=== PATIENT | male | born 1945 | race Caucasian/White ===

== ENCOUNTER 2017-12-18 05:27 | Emergency (ER) | payer OTHER ==
[2017-12-18] MEDS ORDERED: HYDROCODONE/APAP 5/325 MG TAB ONE (06:14)
[2017-12-18] MEDS ORDERED: ONDANSETRON 4 MG/2 ML VIAL ONE (06:44)
[2017-12-18] MEDS ORDERED: MORPHINE 4 MG/ML SYR ONE (06:44)
[2017-12-18] MEDS ORDERED: TETANUS & DIPHTHERIA TOX,ADULT 0.5 ML VIAL ONE (06:45)
[2017-12-18] MEDS ORDERED: CEFTRIAXONE/SWI 1gm 1 GM/10 ML SYR ONE (06:45)
[2017-12-18 06:56] LABS: Absolute Lymphocytes (CBC) 1.2 K/uL (0.7-4.9); Absolute Monocytes 0.8 K/uL (0.1-1.3); Absolute Neutrophil 5.6 K/uL (1.8-8.0); Basophils % 0.8 % (0-1.3); Eosinophils % 2.9 % (0-4.4); Hematocrit 34.8 % (39.6-49.0); Lymphocytes % 15.1 % (15.3-44.8); MCH 32.1 pg (27.0-35.0); MCV 89.7 fL (80-100); MPV 7.6 fL (7.6-11.3); Monocytes % 10.1 % (3.3-12.3); RBC Red Blood Cell Count 3.88 M/uL (4.33-5.43)
[2017-12-18 07:10] LABS: Potassium 4.2 mmol/L (3.5-5.1)
[2017-12-18] MEDS ORDERED: VANCOMYCIN 1 GM/250 ML BAG ONE (07:20)
--- NOTE | 2017-12-18 08:49 | RAD REPORT ---
EXAM DESCRIPTION: CT - Hand Right W Con - 12/18/2017 8:09 am CLINICAL HISTORY: Right hand pain and swelling. Right hand injury 2 days ago. Swelling in the region of the third MCP joint COMPARISON: December 18, 2017 x-ray TECHNIQUE: Computed coronal tomography of the right hand was obtained with axial and sagittal recons truction. 50 cc Isovue-[address] scans are performed using dose optimization technique as appropriate and may include automated exposure control or mA/KV adjustment according to patient size. FINDINGS: Large osteophytes extend off of the third metatarsal head. Subchondral cysts are present. No fracture or dislocation is seen. Soft tissue swelling involves the region of the third MCP joint. A significant joint effusion is not visualized. A soft tissue abscess is not seen. Edema is present within the subcutaneous tissues IMPRESSION: Edema within the subcutaneous tissues of the hand may indicate a cellulitis. A soft tiss ue abscess is not seen. No radiographic evidence of osteomyelitis is noted. Osteoarthritis involving the third MCP joint No fracture is seen. If the patient has clinical symptoms to suggest a ligamentous or tendon injury then MRI would be sangeeta mmended
--- NOTE | 2017-12-18 08:51 | RAD REPORT ---
EXAM DESCRIPTION: RAD - Hand Right 3 View - 12/18/2017 6:01 am CLINICAL HISTORY: Right hand pain status post injury FINDINGS: No fracture or dislocation is seen. Osteoarthritis involves the third MCP joint consisting of large osteophytes and subchondral cysts. No bony destructive lesion seen.
--- NOTE | 2017-12-18 09:08 | ER ---
Nurse's Notes [facility] Name: Qasim Montez Age: 72 yrs Sex: Male : 1945 Arrival Date: 12/18/2017 Time: 05:32 Bed 3 Private MD: José Brady Diagnosis: Cellulitis of right hand Presentation: 12/18 05:39 Presenting complaint: Patient states: he hit his right hand on the door jamb a couple bb of days ago and it has become extremely painful, swollen, and reddened. Transition of care: patient was not received from another setting of care. Onset of symptoms was December 16, 2017. Risk Assessment: Do you want to hurt yourself or someone else? Patient reports no desire to harm self or others. Initial Sepsis Screen: Does the patient meet any 2 criteria? No. Patient's initial sepsis screen is negative. Does the patient have a suspected source of infection? No. Patient's initial sepsis screen is negative. Care prior to arrival: None. 05:39 Method Of Arrival: Ambulatory bb 05:39 Acuity: PIPER 3 bb Triage Assessment: 05:45 General: Appears distressed, uncomfortable, Behavior is cooperative, appropriate for bp age, agitated. Pain: Complains of pain in right hand. Injury Description: Deformity sustained to right hand is INFLAMMATION OF R THIRD FINGER JOINT. Historical: - Allergies: 05:42 No Known Allergies; bb - Home Meds: 05:42 gemfibrozil 600 mg Oral tab 1 tab 2 times per day [Active]; hydrochlorothiazide 12.5 mg bb Oral cap [Active]; carvedilol 12.5 mg oral tab [Active]; amlodipine 5 mg tab [Active]; losartan 100 mg oral tab 1 tab once daily [Active]; metformin 500 mg Oral tab [Active]; - PMHx: 05:42 Diabetes - NIDDM; Hypertension; bb - PSHx: 05:42 Knee surgery; bb - Immunization history:: Adult Immunizations unknown, Last tetanus immunization: unknown. - Social history:: Smoking status: Patient/guardian denies using tobacco, Patient uses alcohol, occasionally. - Ebola Screening: : No symptoms or risks identified at this time. Screenin:38 Abuse screen: Denies threats or abuse. Denies injuries from another. Nutritional bp screening: No deficits noted. Tuberculosis screening: No symptoms or risk factors identified. Fall Risk None identified. Assessment: 05:39 General: Appears in no apparent distress. comfortable, Behavior is cooperative, bp appropriate for age, anxious. Pain: Complains of pain in right hand. Neuro: Level of Consciousness is awake, alert, obeys commands, Oriented to person, place, time, situation, Appropriate for age. Cardiovascular: No deficits noted. Respiratory: Airway is patent Respiratory effort is even, unlabored, Respiratory pattern is regular, symmetrical. GI: No signs and/or symptoms were reported involving the gastrointestinal system. : No signs and/or symptoms were reported regarding the genitourinary system. EENT: No deficits noted. Derm: Skin is pink, warm \T\ dry. Musculoskeletal: Swelling present in right hand. 06:15 Reassessment: XRAY COMPLETED, PT VS STABLE, RESULTS PENDING. bp 07:31 Reassessment: Patient appears in no apparent distress at this time. Patient and/or sg family updated on plan of care and expected duration. Pain level reassessed. Patient is alert, oriented x 3, equal unlabored respirations, skin warm/dry/pink. awaiting ultrasound at this time, pt remains at bedside, reports pt has not had any of his daily medications this morning, notified. 08:35 Reassessment: Patient appears in no apparent distress at this time. Patient and/or sg family updated on plan of care and expected duration. Pain level reassessed. Patient is alert, oriented x 3, equal unlabored respirations, skin warm/dry/pink. at bedside updating pt on results and POC, pt and pt family stated understanding Patient states feeling better. 09:01 Reassessment: Patient appears in no apparent distress at this time. Patient is alert, sg oriented x 3, equal unlabored respirations, skin warm/dry/pink. at bedside at this time, updating pt on d/c instructions, follow up care, and home care instructions, pt and pt stated understanding Patient states feeling better. Vital Signs: 05:42 BP 148 / 80; Pulse 79; Resp 16 S; Temp 98(O); Pulse Ox 96% on R/A; Weight 92.99 kg (R); bb Height 5 ft. 9 in. (175.26 cm) (R); Pain 10/10; 06:15 BP 156 / 76; Pulse 72; Resp 20; Pulse Ox 99% ; bp 06:45 BP 158 / 77; Pulse 70; Resp 14; Pulse Ox 95% ; bp 08:30 BP 157 / 96; Pulse 66; Resp 14 S; Pulse Ox 96% on R/A; Pain 4/10; sg 05:42 Body Mass Index 30.27 (92.99 kg, 175.26 cm) bb [place] Coma Score: 08:30 Eye Response: spontaneous(4). Verbal Response: oriented(5). Motor Response: obeys sg commands(6). Total: 15. ED Course: 05:32 Patient arrived in ED. es 05:34 Cosme Llanos, TANA is Primary Nurse. bp 05:35 José Brady MD is Private Physician. es 05:39 Patient has correct armband on for positive identification. Bed in low position. Call bp light in reach. Side rails up X2. Adult w/ patient. 05:40 Triage completed. bb 05:42 Arm band placed on Patient placed in an exam room, on a stretcher, on pulse oximetry. bb X-ray ordered. Family accompanied patient. 05:57 X-ray completed. Portable x-ray completed in exam room. Patient tolerated procedure kw poorly. 05:58 XRAY Hand RIGHT 3 View In Process Unspecified. EDMS 06:03 Oscar Anders MD is Attending Physician. gs 06:30 Inserted saline lock: 18 gauge in left forearm, using aseptic technique. Blood bp collected. 07:07 Primary Nurse role handed off by Cosme Llanos RN sg 07:07 Braulio He RN is Primary Nurse. sg 07:17 US Extrmty Nonvasular Limited In Process Unspecified. EDMS 07:17 Ultrasound completed. aa4 07:32 Attending Physician role handed off by Oscar Anders MD rn 07:32 Hao Sharp MD is Attending Physician. rn 08:09 Hand Right W Con In Process Unspecified. EDMS 08:09 CT completed. Patient tolerated procedure well. CT completed. Patient tolerated vr procedure well. Patient moved to CT via wheelchair. Patient moved back from CT. 09:07 Gerardo Dixon MD is Referral Physician. rn Administered Medications: 06:10 Drug: Advance 5 mg-325 mg 1 tabs Route: PO; bp 06:52 Follow up: Response: No change in condition bp 06:45 Drug: Rocephin - (cefTRIAXone) 1 grams Route: IVPB; Infused Over: 30 mins; Site: left bp wrist; 06:45 Drug: morphine 4 mg Route: IVP; Site: left wrist; bp 06:53 Follow up: Response: Pain is decreased bp 06:45 Drug: Zofran 4 mg Route: IVP; Site: left forearm; bp 06:53 Follow up: Response: No adverse reaction bp 06:46 Drug: Tetanus-Diphtheria Toxoid Adult 0.5 ml {Geriatric Physical Therapist: [employer]. Exp: ak1 02/19/2020. Lot #: [id number]. } Route: IM; Site: right deltoid; 06:54 Follow up: Response: No adverse reaction bp 07:30 Drug: vancoMYCIN 1 grams Route: IVPB; Infused Over: 2 hrs; Site: left wrist; sg Outcome: 09:07 Discharge ordered by . rn 09:31 Patient left the ED. hb Signatures: Dispatcher [employer] EDBraulio Bauman RN RN Ramona Hartley Brenda RN RN Lamar Agustin aa4 Hao Sharp MD MD rn Davis, Victoria vr Whitley, Kimberlee kw Krenek, Amber, RN RN ak Shreya Maldonado RN RN Oscar Anders MD MD gs Peltier, Brian, RN RN bp
--- NOTE | 2017-12-18 09:09 | EDPHYS ---
Physician Documentation [facility] Name: Qasim Montez Age: 72 yrs Sex: Male : 1945 Arrival Date: 12/18/2017 Time: 05:32 Bed 3 Private MD: José Brady ED Physician Hao Sharp HPI: 12/18 06:55 This 72 yrs old Male presents to ER via Ambulatory with complaints of Hand gs Injury. 06:55 The patient or guardian reports an abrasion, decreased range of motion, deformity, gs injury, pain. The complaints affect the MCP of right middle finger. Context: The problem was sustained at home, resulted from a direct blow, by a heavy object, moving furniture. Onset: The symptoms/episode began/occurred 2 day(s) ago, and became worse and became persistent. Modifying factors: The symptoms are alleviated by nothing, the symptoms are aggravated by movement. Associated signs and symptoms: Pertinent negatives: fever. Severity of symptoms: At their worst the symptoms were severe, in the emergency department the symptoms are unchanged. The patient has not experienced similar symptoms in the past. Historical: - Allergies: 05:42 No Known Allergies; bb - Home Meds: 05:42 gemfibrozil 600 mg Oral tab 1 tab 2 times per day [Active]; hydrochlorothiazide 12.5 mg bb Oral cap [Active]; carvedilol 12.5 mg oral tab [Active]; amlodipine 5 mg tab [Active]; losartan 100 mg oral tab 1 tab once daily [Active]; metformin 500 mg Oral tab [Active]; - PMHx: 05:42 Diabetes - NIDDM; Hypertension; bb - PSHx: 05:42 Knee surgery; bb - Immunization history:: Adult Immunizations unknown, Last tetanus immunization: unknown. - Social history:: Smoking status: Patient/guardian denies using tobacco, Patient uses alcohol, occasionally. - Ebola Screening: : No symptoms or risks identified at this time. ROS: 06:55 All other systems are negative. gs Exam: 06:55 Head/Face: Normocephalic, atraumatic. Eyes: Pupils equal round and reactive to light, gs extra-ocular motions intact. Lids and lashes normal. Conjunctiva and sclera are non-icteric and not injected. Cornea within normal limits. Periorbital areas with no swelling, redness, or edema. ENT: Nares patent. No nasal discharge, no septal abnormalities noted. Tympanic membranes are normal and external auditory canals are clear. Oropharynx with no redness, swelling, or masses, exudates, or evidence of obstruction, uvula midline. Mucous membranes moist. Neck: Trachea midline, no thyromegaly or masses palpated, and no cervical lymphadenopathy. Supple, full range of motion without nuchal rigidity, or vertebral point tenderness. No Meningismus. Chest/axilla: Normal chest wall appearance and motion. Nontender with no deformity. No lesions are appreciated. Cardiovascular: Regular rate and rhythm with a normal S1 and S2. No gallops, murmurs, or rubs. Normal PMI, no JVD. No pulse deficits. Respiratory: Lungs have equal breath sounds bilaterally, clear to auscultation and percussion. No rales, rhonchi or wheezes noted. No increased work of breathing, no retractions or nasal flaring. Abdomen/GI: Soft, non-tender, with normal bowel sounds. No distension or tympany. No guarding or rebound. No evidence of tenderness throughout. Back: No spinal tenderness. No costovertebral tenderness. Full range of motion. Neuro: Awake and alert, GCS 15, oriented to person, place, time, and situation. Cranial nerves II-XII grossly intact. Motor strength 5/5 in all extremities. Sensory grossly intact. Cerebellar exam normal. Normal gait. 06:55 Constitutional: The patient appears alert, awake. 06:55 Musculoskeletal/extremity: Extremities: noted in the MCP of right middle finger: ROM: limited active range of motion due to pain, limited passive range of motion due to pain, Pulses: are normal with no appreciated deficits, Sensation intact. Joints: the MCP of right middle finger displays effusion, painful range of motion, swelling, tenderness. 07:07 Skin: cellulitis, that is mild, on the MCP of right middle finger. Vital Signs: 05:42 BP 148 / 80; Pulse 79; Resp 16 S; Temp 98(O); Pulse Ox 96% on R/A; Weight 92.99 kg (R); bb Height 5 ft. 9 in. (175.26 cm) (R); Pain 10/10; 06:15 BP 156 / 76; Pulse 72; Resp 20; Pulse Ox 99% ; bp 06:45 BP 158 / 77; Pulse 70; Resp 14; Pulse Ox 95% ; bp 08:30 BP 157 / 96; Pulse 66; Resp 14 S; Pulse Ox 96% on R/A; Pain 4/10; sg 05:42 Body Mass Index 30.27 (92.99 kg, 175.26 cm) [place] Coma Score: 08:30 Eye Response: spontaneous(4). Verbal Response: oriented(5). Motor Response: obeys sg commands(6). Total: 15. MDM: 06:07 Patient medically screened. gs 06:55 Differential diagnosis: tendonitis, tenosynovitis. Data reviewed: vital signs, nurses gs notes. 07:44 ED course: Pt with swelling over right 3rd MCP joint, no fluctuance, + erythema with rn proximal streaking that doesn't cross wrist, U/S showing heterogenous tissue without obvious abscess, CT hand ordered to rule out fracture and deeper infection.. 09:04 Counseling: I had a detailed discussion with the patient and/or guardian regarding: the rn historical points, exam findings, and any diagnostic results supporting the discharge/admit diagnosis, lab results, radiology results, the need for outpatient follow up, to return to the emergency department if symptoms worsen or persist or if there are any questions or concerns that arise at home. Response to treatment: the patient's symptoms have mildly improved after treatment, and as a result, I will discharge patient. ED course: Pt improved, has increased ROM, redness decreased, s/p rocephin and vancomycin, WBC normal, normal vitals, u/s and CT show cellulitis but no fluid collection or extension or deep infection, has not been on abx, will dc home with strict return precautions and abx. Will have hand f/u. Understands return precautions. Pt requesting to go home as has to attend today. . 12/18 06:34 Order name: CBC with Diff; Complete Time: 07:02 12/18 06:34 Order name: Basic Metabolic Panel; Complete Time: 07:17 12/18 05:44 Order name: XRAY Hand RIGHT 3 View; Complete Time: 08:56 bb 12/18 06:34 Order name: Blood Culture* 12/18 07:05 Order name: US Extrmty Nonvasular Limited 12/18 07:18 Order name: Hand Right W Con; Complete Time: 08:56 EDMS Administered Medications: 06:10 Drug: [place] 5 mg-325 mg 1 tabs Route: PO; bp 06:52 Follow up: Response: No change in condition bp 06:45 Drug: Rocephin - (cefTRIAXone) 1 grams Route: IVPB; Infused Over: 30 mins; Site: left bp wrist; 06:45 Drug: morphine 4 mg Route: IVP; Site: left wrist; bp 06:53 Follow up: Response: Pain is decreased bp 06:45 Drug: Zofran 4 mg Route: IVP; Site: left forearm; bp 06:53 Follow up: Response: No adverse reaction bp 06:46 Drug: Tetanus-Diphtheria Toxoid Adult 0.5 ml {[employer]: [employer]. Exp: ak1 02/19/2020. Lot #: [id number]. } Route: IM; Site: right deltoid; 06:54 Follow up: Response: No adverse reaction bp 07:30 Drug: vancoMYCIN 1 grams Route: IVPB; Infused Over: 2 hrs; Site: left wrist; sg Disposition: 12/18/17 09:07 Discharged to Home. Impression: Cellulitis of right hand. - Condition is Stable. - Discharge Instructions: Cellulitis, Adult. - Prescriptions for Augmentin 875- 125 mg Oral Tablet - take 1 tablet by ORAL route every 12 hours for 10 days; 20 tablet. Tylenol- Codeine #3 300-30 mg Oral Tablet - take 1 tablet by ORAL route every 6 hours As needed; 20 tablet. Bactrim DS 800- 160 mg Oral Tablet - take 1 tablet by ORAL route every 12 hours for 10 days; 20 tablet. - Medication Reconciliation Form, Thank You Letter, Antibiotic Education, Prescription Opioid Use form. - Follow up: Gerardo Dixon MD; When: 2 - 3 days; Reason: Recheck today's complaints, Re-evaluation by your physician. - Problem is new. - Symptoms have improved. Signatures: Dispatcher [employer] EDMS Braulio He RN TANA sg Margie Hi RN RN bb Hao Sharp MD MD rn Krenek, Amber, RN RN ak1 Yomi Parekh, DIRECTOR DRUG SAFETY DIRECTOR DRUG SAFETY pm1 Shreya Maldonado RN RN hb Oscar Anders MD MD Cosme Llanos RN RN bp Corrections: (The following items were deleted from the chart) 07:07 06:55 Head/Face: Normocephalic, atraumatic. Eyes: Pupils equal round and reactive to gs light, extra-ocular motions intact. Lids and lashes normal. Conjunctiva and sclera are non-icteric and not injected. Cornea within normal limits. Periorbital areas with no swelling, redness, or edema. ENT: Nares patent. No nasal discharge, no septal abnormalities noted. Tympanic membranes are normal and external auditory canals are clear. Oropharynx with no redness, swelling, or masses, exudates, or evidence of obstruction, uvula midline. Mucous membranes moist. Neck: Trachea midline, no thyromegaly or masses palpated, and no cervical lymphadenopathy. Supple, full range of motion without nuchal rigidity, or vertebral point tenderness. No Meningismus. Chest/axilla: Normal chest wall appearance and motion. Nontender with no deformity. No lesions are appreciated. Cardiovascular: Regular rate and rhythm with a normal S1 and S2. No gallops, murmurs, or rubs. Normal PMI, no JVD. No pulse deficits. Respiratory: Lungs have equal breath sounds bilaterally, clear to auscultation and percussion. No rales, rhonchi or wheezes noted. No increased work of breathing, no retractions or nasal flaring. Abdomen/GI: Soft, non-tender, with normal bowel sounds. No distension or tympany. No guarding or rebound. No evidence of tenderness throughout. Back: No spinal tenderness. No costovertebral tenderness. Full range of motion. Skin: Warm, dry with normal turgor. Normal color with no rashes, no lesions, and no evidence of cellulitis. Neuro: Awake and alert, GCS 15, oriented to person, place, time, and situation. Cranial nerves II-XII grossly intact. Motor strength 5/5 in all extremities. Sensory grossly intact. Cerebellar exam normal. Normal gait. 09:31 09:07 12/18/2017 09:07 Discharged to Home. Impression: Cellulitis of right hand. hb Condition is Stable. Forms are Medication Reconciliation Form, Thank You Letter, Antibiotic Education, Prescription Opioid Use. Follow up: Gerardo Dixon; When: 2 - 3 days; Reason: Recheck today's complaints, Re-evaluation by your physician. Problem is new. Symptoms have improved. rn
--- NOTE | 2017-12-18 09:49 | RAD REPORT ---
EXAM DESCRIPTION: US - Extremity Nonvascular Limited - 12/18/2017 7:25 am CLINICAL HISTORY: Right hand pain and swelling FINDINGS: Sonographic evaluation of the region of the third MCP joint was performed. Diffuse edema i s present within the subcutaneous tissues. An abscess is not visualized. A large joint effusion is no t seen. IMPRESSION: Diffuse edema within the subcutaneous tissues may indicate a cellulitis. An abscess is n ot seen.
== END 2017-12-18 09:31 | disposition home or self-care (01) ==
LOC: ER 05:27
DX: L03.113 Cellulitis of right upper limb (principal); I10 Essential (primary) hypertension; E11.9 Type 2 diabetes mellitus without complications; Z23 Encounter for immunization
CPT/HCPCS: 36415; 73130; 73201; 76882; 80048; 85025; 87040 ×2; 90714; 99284; J0696; J2405; J3370; Q9967

== ENCOUNTER 2018-08-11 19:19 | Emergency (ER) | payer OTHER ==
[2018-08-11] MEDS ORDERED: KETOROLAC 30 MG/ML INJ ONE (20:48)
[2018-08-11] MEDS ORDERED: NA CHLORIDE 0.9% 1,000 ML ONE (20:48)
[2018-08-11] MEDS ORDERED: METOCLOPRAMIDE 10 MG/2mL INJ ONE (20:48)
[2018-08-11] MEDS ORDERED: DIPHENHYDRAMINE 50 MG/ML VIAL ONE (20:48)
--- NOTE | 2018-08-11 20:48 | RAD REPORT ---
EXAM DESCRIPTION: CT - Head Brain Wo Cont - 08/11/2018 8:40 pm CLINICAL HISTORY: HEADACHE COMPARISON: No comparisons TECHNIQUE: All CT scans are performed using dose optimization technique as appropriate and may inclu de automated exposure control or mA/KV adjustment according to patient size. FINDINGS: No intracranial hemorrhage, hydrocephalus or extra-axial fluid collection.Moderate general ized brain atrophy is present with mild periventricular and deep white matter chronic microvascular i schemic changes.No areas of brain edema or evidence of midline shift. The paranasal sinuses and mastoids are clear. The calvarium is intact. IMPRESSION: No acute intracranial abnormality.
[2018-08-11] MEDS ORDERED: LORazepam 2 MG/ML VIAL ONE (21:23)
--- NOTE | 2018-08-11 21:41 | EDPHYS ---
Physician Documentation [facility] Name: Qasim Montez Age: 73 yrs Sex: Male : 1945 Arrival Date: 08/11/2018 Time: 19:24 Bed 23 Private MD: José Brady ED Physician Chon Mendiola HPI: 08/11 20:39 This 73 yrs old Male presents to ER via Ambulatory with complaints of ma2 Headache. 20:39 The patient complains of pain to the left cheek, left eye and left bahai. Onset: The ma2 symptoms/episode began/occurred gradually, 3 day(s) ago. Associated signs and symptoms: Pertinent negatives: altered mental status, fever, nausea, neck stiffness, paresthesias, Photophobia rash. Severity of symptoms: At its worst the pain was moderate, in the emergency department the pain is unchanged. Headache History: Denies prior headaches. The patient has not experienced similar symptoms in the past. Historical: - Allergies: 19:30 No Known Allergies; jd3 - Home Meds: 19:30 amlodipine [Active]; jd3 - PMHx: 19:30 Diabetes - NIDDM; Hypertension; jd3 - PSHx: 19:30 Knee surgery; jd3 - Immunization history:: Adult Immunizations up to date. - Social history:: Smoking status: Patient/guardian denies using tobacco, but has a distant history of tobacco abuse, Patient/guardian denies using alcohol, street drugs, The patient lives with family. - Ebola Screening: : Patient negative for fever greater than or equal to 101.5 degrees Fahrenheit, and additional compatible Ebola Virus Disease symptoms. - Family history:: not pertinent. ROS: 20:39 Constitutional: Negative for fever, chills, and weight loss, Neck: Negative for injury, ma2 pain, and swelling, Cardiovascular: Negative for chest pain, palpitations, and edema, Respiratory: Negative for shortness of breath, cough, wheezing, and pleuritic chest pain, Abdomen/GI: Negative for abdominal pain, nausea, diarrhea, and constipation. 20:39 Neuro: Positive for headache, Negative for dizziness, gait disturbance, hearing loss, loss of consciousness, numbness, seizure activity, speech changes, syncope, near syncope, tinnitus, tremor, visual changes, weakness, acute changes. 20:39 All other systems are negative. Exam: 20:39 Constitutional: This is a well developed, well nourished patient who is awake, alert, ma2 and in no acute distress. Head/Face: Normocephalic, atraumatic. Eyes: Pupils equal round and reactive to light, extra-ocular motions intact. Lids and lashes normal. Conjunctiva and sclera are non-icteric and not injected. Cornea within normal limits. Periorbital areas with no swelling, redness, or edema. ENT: Nares patent. No nasal discharge, no septal abnormalities noted. Tympanic membranes are normal and external auditory canals are clear. Oropharynx with no redness, swelling, or masses, exudates, or evidence of obstruction, uvula midline. Mucous membranes moist. Neck: Trachea midline, no thyromegaly or masses palpated, and no cervical lymphadenopathy. Supple, full range of motion without nuchal rigidity, or vertebral point tenderness. No Meningismus. Chest/axilla: Normal chest wall appearance and motion. Nontender with no deformity. No lesions are appreciated. Cardiovascular: Regular rate and rhythm with a normal S1 and S2. No gallops, murmurs, or rubs. Normal PMI, no JVD. No pulse deficits. Respiratory: Lungs have equal breath sounds bilaterally, clear to auscultation and percussion. No rales, rhonchi or wheezes noted. No increased work of breathing, no retractions or nasal flaring. Abdomen/GI: Soft, non-tender, with normal bowel sounds. No distension or tympany. No guarding or rebound. No evidence of tenderness throughout. MS/ Extremity: Pulses equal, no cyanosis. Neurovascular intact. Full, normal range of motion. Neuro: Awake and alert, GCS 15, oriented to person, place, time, and situation. Cranial nerves II-XII grossly intact. Motor strength 5/5 in all extremities. Sensory grossly intact. Cerebellar exam normal. Normal gait. Vital Signs: 19:30 BP 170 / 95; Resp 15 S; Temp 98.1(TE); Pulse Ox 97% on R/A; Weight 99.79 kg (R); Height jd3 5 ft. 10 in. (177.80 cm) (R); Pain 7/10; 21:37 BP 152 / 75; Pulse 78; Resp 16; Pulse Ox 99% on R/A; Pain 3/10; ls4 22:26 BP 166 / 88; Pulse 79; Resp 18; Pulse Ox 99% on R/A; Pain 0/10; ls4 19:30 Body Mass Index 31.57 (99.79 kg, 177.80 cm) jd3 MDM: 20:02 Patient medically screened. ma2 20:39 Differential diagnosis: cluster headache, migraine, trigeminal neuralgia, temporal ma2 artery non tender. 21:40 Data reviewed: vital signs, nurses notes. Counseling: I had a detailed discussion with ma2 the patient and/or guardian regarding: the historical points, exam findings, and any diagnostic results supporting the discharge/admit diagnosis, the presence of at least one elevated blood pressure reading (>120/80) during this emergency department visit, the need for outpatient follow up. Response to treatment: the patient's symptoms have resolved after treatment. 08/11 20:19 Order name: CT Head Brain wo Cont; Complete Time: 21:09 ma2 08/11 20:19 Order name: Oxygen; Complete Time: 20:38 ma2 Administered Medications: 20:55 Drug: TORadol 30 mg Route: IVP; Site: right wrist; ls4 21:28 Follow up: Response: No adverse reaction; Marked relief of symptoms ls4 20:56 Drug: Reglan 10 mg Route: IVP; Site: right wrist; ls4 21:28 Follow up: Response: No adverse reaction; Marked relief of symptoms ls4 20:56 Drug: Benadryl 50 mg Route: IVP; Site: right wrist; ls4 21:05 Follow up: Response: Adverse reaction, Physician notified; Other ls4 20:57 Drug: NS 0.9% (20 ml/kg) 1000 ml Route: IV; Rate: 1 bolus; Site: right wrist; ls4 22:30 Follow up: IV Status: Completed infusion; IV Intake: 1000ml ls4 21:18 Drug: Ativan 2 mg Route: IVP; Site: right wrist; ls4 21:53 Follow up: Response: No adverse reaction; Marked relief of symptoms ls4 Disposition: 08/11/18 21:40 Discharged to Home. Impression: Episodic cluster headache. - Condition is Stable. - Discharge Instructions: Cluster Headache. - Prescriptions for Reglan 10 mg Oral Tablet - take 1 tablet by ORAL route every 6 hours . take 30 minutes before meals and at bedtime; 100 tablet. Tylenol- Codeine #3 300-30 mg Oral Tablet - take 2 tablet by ORAL route every 6 hours As needed; 30 tablet. - Medication Reconciliation Form, Thank You Letter, Antibiotic Education, Prescription Opioid Use form. - Follow up: Power Flores; When: Tomorrow; Reason: Continuance of care. Signatures: Dispatcher [employer] Santos Watson RN RN jd3 Chon Mendiola MD MD ma2 Beatriz Jarrell RN RN ls4 Corrections: (The following items were deleted from the chart) 22:31 21:40 08/11/2018 21:40 Discharged to Home. Impression: Episodic cluster headache. ls4 Condition is Stable. Prescriptions for Reglan 10 mg Oral Tablet - take 1 tablet by ORAL route every 6 hours . take 30 minutes before meals and at bedtime; 100 tablet. and Forms are Medication Reconciliation Form, Thank You Letter, Antibiotic Education, Prescription Opioid Use. Follow up: Power Flores; When: Tomorrow; Reason: Continuance of care. ma2
--- NOTE | 2018-08-11 21:41 | ER ---
Nurse's Notes [facility] Name: Qasim Montez Age: 73 yrs Sex: Male : 1945 Arrival Date: 08/11/2018 Time: 19:24 Bed 23 Private MD: José Brady Diagnosis: Episodic cluster headache Presentation: 08/11 19:25 Presenting complaint: Patient states: "I am having left sided headache off and on. It jd3 starts behind my left eye and goes all the down into my neck.". Transition of care: patient was not received from another setting of care. Onset of symptoms was August 11, 2018. Risk Assessment: Do you want to hurt yourself or someone else? Patient reports no desire to harm self or others. Initial Sepsis Screen: Does the patient meet any 2 criteria? No. Patient's initial sepsis screen is negative. Does the patient have a suspected source of infection? No. Patient's initial sepsis screen is negative. Care prior to arrival: None. 19:25 Method Of Arrival: Ambulatory jd3 19:25 Acuity: PIPER 3 jd3 Triage Assessment: 19:52 General: Appears in no apparent distress. Behavior is calm, cooperative. Pain: Also ls4 complains of no other associated symptoms. 20:38 Headache History: Denies prior headaches. Pain: Pain began gradually, 4 days ago. ls4 Historical: - Allergies: 19:30 No Known Allergies; jd3 - Home Meds: 19:30 amlodipine [Active]; jd3 - PMHx: 19:30 Diabetes - NIDDM; Hypertension; jd3 - PSHx: 19:30 Knee surgery; jd3 - Immunization history:: Adult Immunizations up to date. - Social history:: Smoking status: Patient/guardian denies using tobacco, but has a distant history of tobacco abuse, Patient/guardian denies using alcohol, street drugs, The patient lives with family. - Ebola Screening: : Patient negative for fever greater than or equal to 101.5 degrees Fahrenheit, and additional compatible Ebola Virus Disease symptoms. - Family history:: not pertinent. Screenin:48 Abuse screen: Denies threats or abuse. Denies injuries from another. Nutritional ls4 screening: No deficits noted. Tuberculosis screening: No symptoms or risk factors identified. Fall Risk None identified. Assessment: 19:46 General: Appears in no apparent distress. Behavior is calm, cooperative. Pain: ls4 Complains of pain in left mormonism Pain currently is 7 out of 10 on a pain scale. Neuro: No deficits noted. Respiratory: Respiratory effort is even, unlabored, Respiratory pattern is regular. GI: No deficits noted. : No deficits noted. Derm: Skin is pink, warm \\T\\ dry. 21:05 Reassessment: pt states headache is improved. pt feels like he has restless legs. Dr cris HINOJOSA notified. Ativan given as ordered and symptoms resolved. 21:28 Reassessment: Patient appears in no apparent distress at this time. Patient and/or ls4 family updated on plan of care and expected duration. Pain level reassessed. Patient is alert, oriented x 3, equal unlabored respirations, skin warm/dry/pink. 22:24 Reassessment: Patient appears in no apparent distress at this time. Patient and/or ls4 family updated on plan of care and expected duration. Pain level reassessed. Patient is alert, oriented x 3, equal unlabored respirations, skin warm/dry/pink. PT STATES HEADACHE IS BETTER. PT ASSISTED TO CAR AND ASSISTED IN. PT STATES THAT THEY ARE [facility]ING TO [facility] TO SLEEP BECAUSE SHE [place]N'T WANT TO DRIVE [place]. Vital Signs: 19:30 BP 170 / 95; Resp 15 S; Temp 98.1(TE); Pulse Ox 97% on R/A; Weight 99.79 kg (R); Height jd3 5 ft. 10 in. (177.80 cm) (R); Pain 7/10; 21:37 BP 152 / 75; Pulse 78; Resp 16; Pulse Ox 99% on R/A; Pain 3/10; ls4 22:26 BP 166 / 88; Pulse 79; Resp 18; Pulse Ox 99% on R/A; Pain 0/10; ls4 19:30 Body Mass Index 31.57 (99.79 kg, 177.80 cm) jd3 ED Course: 19:24 Patient arrived in ED. ds1 19:24 José Brady MD is Private Physician. ds1 19:27 Triage completed. jd3 19:32 Arm band placed on. jd3 19:46 Beatriz Jarrell, TANA is Primary Nurse. ls4 19:48 Patient has correct armband on for positive identification. Bed in low position. Call ls4 light in reach. Side rails up X 1. 19:48 No provider procedures requiring assistance completed. ls4 20:02 Chon Hinojosa MD is Attending Physician. ma2 20:[address] via wheelchair. 20:38 Inserted saline lock: 20 gauge in right wrist, using aseptic technique. ls4 20:40 CT completed. Patient tolerated procedure well. Patient moved back from CT. 20:41 CT Head Brain wo Cont In Process Unspecified. EDMS 21:40 Power Flores MD is Referral Physician. ma2 22:29 IV discontinued, intact, bleeding controlled, No redness/swelling at site. ls4 Administered Medications: 20:55 Drug: TORadol 30 mg Route: IVP; Site: right wrist; ls4 21:28 Follow up: Response: No adverse reaction; Marked relief of symptoms ls4 20:56 Drug: Reglan 10 mg Route: IVP; Site: right wrist; ls4 21:28 Follow up: Response: No adverse reaction; Marked relief of symptoms ls4 20:56 Drug: Benadryl 50 mg Route: IVP; Site: right wrist; ls4 21:05 Follow up: Response: Adverse reaction, Physician notified; Other ls4 20:57 Drug: NS 0.9% (20 ml/kg) 1000 ml Route: IV; Rate: 1 bolus; Site: right wrist; ls4 22:30 Follow up: IV Status: Completed infusion; IV Intake: 1000ml ls4 21:18 Drug: Ativan 2 mg Route: IVP; Site: right wrist; ls4 21:53 Follow up: Response: No adverse reaction; Marked relief of symptoms ls4 Intake: 22:30 IV: 1000ml; Total: 1000ml. ls4 Outcome: 21:40 Discharge ordered by . ma2 22:29 Discharged to home ambulatory, with family. ls4 22:29 Condition: good 22:29 Discharge instructions given to patient, family, Instructed on discharge instructions, follow up and referral plans. medication usage, Demonstrated understanding of instructions, follow-up care, medications, Prescriptions given X 2. 22:31 Patient left the ED. ls4 Signatures: Dispatcher [employer] EDMD Valentín Carroll Salud Tan ds1 Santos Tobias RN RN jd3 Chon Hinojosa MD MD ma2 Beatriz Jarrell RN RN ls4 Corrections: (The following items were deleted from the chart) 1940 19:25 Acuity: PIPER 4 jd3 jd3 22:30 22:30 IV Intake: 1000ml ls4 ls4
== END 2018-08-11 22:31 | disposition home or self-care (01) ==
LOC: ER 19:19
DX: G44.019 Episodic cluster headache, not intractable (principal); E11.9 Type 2 diabetes mellitus without complications; I10 Essential (primary) hypertension
CPT/HCPCS: 96361; 70450; 96375; 96374; 99284; J2765; J7030

== ENCOUNTER 2020-03-31 08:20 | Day surgery (SDC) | payer OTHER ==
[2020-03-27 08:55] LABS: Absolute Lymphocytes (CBC) 1.7 K/uL (0.7-4.9); Basophils % 0.7 % (0-1.3); Lymphocytes % 26.6 % (15.3-44.8); MPV 7.5 fL (7.6-11.3); RBC Red Blood Cell Count 4.53 M/uL (4.33-5.43)
[2020-03-27 09:05] LABS: Protime INR 0.89
[2020-03-27 09:20] LABS: Potassium 3.8 mmol/L (3.5-5.1)
[2020-03-31] MEDS ORDERED: NA CHLORIDE 0.9% 1,000 ML ONE (08:37)
[2020-03-31] MEDS ORDERED: CEFAZOLIN/SWI 1gm 1 GM/10 ML SYR ONE (08:38)
--- OUTSIDE RECORDS SUMMARY | 2020-03-31 08:48 | XMS REPORT | Summary of Care ---
:1945 Author Organization [facility] Address [address] [place] [id number] Care Team Providers Name Role Phone José Brady Ramirez Primary Care Provider Reason for Referral Radiology Services (Routine) Status Reason Specialty Diagnoses / Referred By Referred To Procedures Contact Contact New Request Diagnostic Diagnoses Right shoulder pain, unspecified chronicity Oliverio De La Rosa Radiology Procedures XR SHOULDER <2 VW RIGHT [place] [address] [place] [address] Reason for Visit Reason Comments New Evaluation Shoulder Pain Right shoulder pain no image s (Routine) Status Reason Specialty Diagnoses / Referred By Referred To Procedures Contact Contact Closed Orthopedic Surgery Diagnoses 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:06/28/2019 Oliverio De La Rosa-Orthopedic Procedures CONSULT/REFERRAL ORTHOPAEDIC SURGERY FOLLOW-UP VISIT MD Chuck Ken, [address] [place] [phone] Phone: Fax: Encounter Details Date Type Department Care Team Description 09/17/2019 Office Visit [facility] Orthopaedic Oliverio De La Rosa ight shoulder pain, Surgery- Celine Ken MD unspecified chronicity Chuck Goode (Primary Dx) [address] [place] [address] [place], [place] [phone] Allergies Active Allergy Reactions Severity Noted Date Comments Niacin Other - See comments 07/08/2015 flushed documented as of this encounter (statuses as of 01/06/2020) Medications Medication Sig Dispensed Refills Start Date End Date Status losartan 50 mg tablet Take by mouth 0 09/23/2018 Active daily. gabapentin 300 mg capsule Take 300 mg by 0 0 Active mouth as needed. hydroCHLOROthiazide 25 mg Take 25 mg by 0 Active tablet mouth daily. CONTOUR NEXT TEST STRIPS USE 1 STRIP TO 0 06/17/2019 Active strip CHECK GLUCOSE ONCE OR TWICE A DAY FREESTYLE BINH 14 DAY APPLY PATCH TO 0 06/27/2019 Active SENSOR Kit SKIN AND USE DIRECTED 1 TO 2 TIMES DAILY documented as of this encounter (statuses as of 01/06/2020) Active Problems Problem Noted Date Left carpal tunnel syndrome 12/24/2019 Overview: Added automatically from request for walter mg [id number] De Quervain's tenosynovitis, left 06/17/2019 Overview: Added automatically from request for walter mg [id number] Shoulder pain, left 11/20/2015 documented as of this encounter (statuses as of 01/06/2020) Immunizations Name Administration Dates Next Due Influenza High Dose 03/29/2018 documented as of this encounter Social History Tobacco Use Types Packs/Day Years Used Date Never Smoker Smokeless Tobacco: Never Used Alcohol Use Drinks/Week oz/Week Comments Yes 0 Standard drinks or equivalent 0.0 Occasionally Sex Assigned at Date Recorded Not on file COVID-19 Exposure Response Date Recorded In the last month, have you been in contact with No / Unsure 12/31/2019 12:52 PM CDT someone who was confirmed or suspected to have Coronavirus / COVID-19? documented as of this encounter Last Filed Vital Signs Vital Sign Reading Time Taken Comments Blood Pressure 130/80 09/17/2019 8:54 AM CDT Pulse - - Temperature - - Respiratory Rate - - Oxygen Saturation - - Inhaled Oxygen Concentration - - Weight 97.5 kg (215 lb) 09/17/2019 8:54 AM CDT Height 176.5 cm (5' 9.5") 09/17/2019 8:54 AM CDT Body Mass Index 31.29 09/17/2019 8:54 AM CDT documented in this encounter Progress Notes Oliverio De La Rosa MD - 09/17/2019 9:00 AM CDT Cc: Chief Complaint Patient presents with New Evaluation Shoulder Pain Right shoulder pain no images Qasim De La Rosa is a 74 year old male. Shoulder Pain The pain is present in the right shoulder. This is a chronic problem. The current episode started more than 1 year ago. There has been no history of extremity trauma. The problem occurs constantly. Theproblem has been waxing and waning. The quality of the pain is described as aching, burning and sharp. The pain is at a severity of 6/10. The pain is moderate. Associated symptoms include an inability to bear weight, a limited range of motion and stiffness. The symptoms are aggravated by activity. He has tried NSAIDS, rest and oral narcotics for the symptoms. The treatment provided no relief. Allergies Qasim is allergic to niacin. Medications Outpatient Medications Prior to Visit Medication Sig Dispense Refill CONTOUR NEXT TEST STRIPS strip USE 1 STRIP TO CHECK GLUCOSE ONCE OR TWICE A DAY FREESTYLE BINH 14 DAY SENSOR Kit APPLY PATCH TO SKIN AND USE DIRECTED 1 TO 2 TIMES DAILY gabapentin 300 mg capsule Take 300 mg by mouth as needed. hydroCHLOROthiazide 25 mg tablet Take 25 mg by mouth daily. losartan 50 mg tablet Take by mouth daily. 0 No facility-administered medications prior to visit. 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 Surgeon: Oliverio De La Rosa MD; [place] [facility] [place] [place] SURG[place] Social History Socioeconomic History Marital status: Spouse name: Not on file Number of children: Not on file Years of education: Not on file Highest education level: Not on file Occupational History Not on file Social Needs Financial resource strain: Not on file Food insecurity: Worry: Not on file Inability: Not on file Transportation needs: Medical: Not on file Non-medical: Not on file Tobacco Use Smoking status: Never Smoker Smokeless tobacco: Never Used Substance and Sexual Activity Alcohol use: Yes Alcohol/week: 0.0 standard drinks Comment: Occasionally Drug use: No Sexual activity: Never Lifestyle Physical activity: Days per week: Not on file Minutes per session: Not on file Stress: Not on file Relationships Social connections: Talks on phone: Not on file Gets together: Not on file Attends caodaism service: Not on file Active member of club or organization: Not on file Attends meetings of clubs or organizations: Not on file Relationship status: Not on file Intimate partner violence: Fear of current or ex partner: Not on file Emotionally abused: Not on file Physically abused: Not on file Forced sexual activity: Not on file Other Topics Concern Not on file Social History Narrative Not on file Family History Problem Relation Age of Onset No Significant Medical Problems Mother No Significant Medical Problems Father Review of Systems Constitutional: Negative. HENT: Negative. Eyes: Negative. Respiratory: Negative. Breasts: Negative. Cardiovascular: Negative. Gastrointestinal: Negative. Genitourinary: Negative. Musculoskeletal: Positive for joint swelling and stiffness. Skin: Negative. Neurological: Negative. Psychiatric/Behavioral: Negative. Endocrine: Endocrine negative Vital Signs BP 130/80 | Ht 69.5" (176.5 cm) | Wt 97.5 kg (215 lb) | BMI 31.29 kg/m Physical Exam Vitals signs and nursing note reviewed. Musculoskeletal: Right shoulder: He exhibits decreased range of motion, pain and decreased strength. Comments: General: Well-developed well-nourished oriented to person place and time HEENT normocephalic atraumatic atraumatic pupils equal round reactive to light extraocular muscles intact Cervical thoracic and lumbar spine without focal deficit normal kyphosis and lordosis Chest clear to auscultation and percussion Cardiovascular regular rate and rhythm without gallop rub or murmur soft without organomegaly Normal bowel sounds Neurologic: Focal myotome or dermatomal deficits Vascular: Intact symmetrical bilateral upper and lower extremities Skin without stasis varicosities or breakdown Extremities without cyanosis clubbing or edema Lymphatics no peripheral lymphedema Psych normal mood and affect. Neurovascular function is intact. To include brisk capillary refill warm pink skin active motor function and sensory function intact. Assessment/Plan Right shoulder pain Medrol dosepak to help wth pain and inflammation documented in this encounter Plan of Treatment Name Type Priority Associated Diagnoses Date/Ti me XR SHOULDER <2 VW IMAGING Routine Right shoulder pain, 8:54 AM RIGHT unspecified chronicity CDT Name Type Priority Associated Diagnoses Order S chedule XR SHOULDER <2 VW IMAGING Routine Right shoulder pain, Ex pected: 09/17/2019, RIGHT unspecified chronicity Expir es: 09/16/2020 Health Maintenance Due Date Last Done Comments DTaP,Tdap,and Td Vaccines (1 - Tdap) 02/23/1964 COLON CANCER SCREENING ANNUAL FIT/FOBT 02/23/1994 COLON CANCER SCREENING FIT DNA EVERY 3 YEARS 02/23/1994 COLON CANCER SCREENING SIGMOIDOSCOPY EVERY 5 YEARS 02/23/1994 COLONOSCOPY 02/23/1994 Colorectal Cancer Screening 02/23/1994 Zoster Recombinant Vaccine (SHINGRIX) (1 of 2) 02/23/1994 Medicare Wellness Visit 02/23/2009 PNEUMOCOCCAL VACCINES 65+ (1 of 1 - PPSV23) 02/23/2009 INFLUENZA VACCINE (#1) 2020 03/29/2018 Depression Screening 09/16/2020 09/17/2019 documented as of this encounter Results Not on filedocumented in this encounter Visit Diagnoses Diagnosis Right shoulder pain, unspecified chronic ity - Primary documented in this encounter Additional Health Concerns Infection Onset Date Last Indicated Resolved Time COVID-19 Rule Out 12/31/2019 12/31/2019 12/31/2019 2: 47 PM CDT COVID-19 Confirmed 12/31/2019 12/31/2019 documented as of this encounter Insurance Payer Benefit Plan / Subscriber ID Effective Dates Phone Addre ss Type [employer] [id number] 2015-Present Medicare Adv [place] HMO documented as of this encounter
--- OUTSIDE RECORDS SUMMARY | 2020-03-31 08:48 | XMS REPORT | Summary of Care ---
:1945 Author Organization [facility] Address [address] [place] [address] Care Team Providers Name Role Phone JesserigoJosé Primary Care Provider Reason for Visit Reason Comments Results Encounter Details Date Type Department Care Team Description 01/23/2020 Telephone [facility] Jenifer Aleman RN Results [address] [address] [place] [address] Allergies Active Allergy Reactions Severity Noted Date Comments Niacin Other - See comments 07/08/2015 flushed documented as of this encounter (statuses as of 01/23/2020) Medications Medication Sig Dispensed Refills Start Date [...] as of this encounter (statuses as of 01/23/2020) Active Problems Problem Noted Date Left carpal tunnel syndrome 12/24/2019 Overview: Added automatically from request for walter holliday [id number] De Quervain's tenosynovitis, left 06/17/2019 Overview: Added automatically from request for walter holliday [id number] Shoulder pain, left 11/20/2015 documented as of this encounter (statuses as of 01/23/2020) Immunizations Name Administration Dates Next Due Influenza [...] last month, have you been in contact Unable to assess 01/20/2020 12:46 PM CDT with someone who was confirmed or suspected to have Coronavirus / COVID-19? documented as of this encounter Last Filed Vital Signs Not on filedocumented in this encounter Miscellaneous Notes Telephone Encounter - Jenifer Aleman RN - 01/23/2020 11:08 PM CDTRjaniya De La Rosa is a 74 year old male who tested negative for Covid-19. Letter mailed to address on file with the following information. Your COVID 19 testing results were negative. At this time, the COVID 19 virus was NOT found in your sample. Continue to protect yourself by wearing a facemask and washing your hands frequently. If youhave not had symptoms, you may return to work immediately. If you had symptoms, you may return to work or school when you are feeling better and have not had a fever for 24 hours or more without takingfever reducing medications such as acetaminophen or ibuprofen and are 10 days from your first symptoms. Wear a mask until it has been greater than 14 days from when your first symptoms appeared. If you are a [facility] or contract employee or student, please refer to this website for more information https: [email or web address]. If you feel you are not getting better, please call the [facility] at [phone] or toll free to schedule a telehealth visit or face to face visit with a provider. Most acute illnesses resolve within 7 days. SANG Franc[facility] Triage Nurse documented in this encounter Plan of Treatment Health Maintenance Due Date Last Done Comments [...] Results Not on filedocumented in this encounter Additional Health Concerns Infection Onset Date Last Indicated Resolved Time COVID-19 Confirmed 12/31/2019 12/31/2019 documented as of this encounter Insurance Payer Benefit Plan / Subscriber ID Effective Dates Phone Addre ss Type Group [employer] [id number] 2015-Present Medicare Adv spring HMO documented as of this encounter
--- OUTSIDE RECORDS SUMMARY | 2020-03-31 08:48 | XMS REPORT | Summary of Care ---
:1945 Author Organization [facility] Address [address] [place] [address] Care Team Providers Name Role Phone Caitlyn José Ramirez Primary Care Provider Reason for Visit Reason Comments LAB WORK Auth/Cert Status Reason Specialty Diagnoses / Referred By Referred To Procedures Contact Contact Clinical Medical Procedures [facility] Lab Laboratory PCR [address] [place] [address] Encounter Details Date Type Department Care Team Description 01/21/2020 Laboratory Only [facility] Oliverio De La Rosa MD [address] [place] [address] [place] [address] Pre-operative Phlebotomy Only, [facility] Test clearance (Primary [facility]) [address] [place] [address] Allergies Active Allergy Reactions Severity Noted Date Comments Niacin Other - See comments 07/08/2015 flushed documented as of this encounter (statuses as of 01/21/2020) Medications Medication Sig Dispensed Refills Start Date [...] as of this encounter (statuses as of 01/21/2020) Active Problems Problem Noted Date Left carpal tunnel syndrome 12/24/2019 Overview: Added automatically from request for walter holliday [id number] De Quervain's tenosynovitis, left 06/17/2019 Overview: Added automatically from request for walter holliday [id number] Shoulder pain, left 11/20/2015 documented as of this encounter (statuses as of 01/21/2020) Immunizations Name Administration Dates Next Due Influenza [...] Signs Not on filedocumented in this encounter Nursing Notes Dot Nunez - 01/21/2020 2:15 PM CDTcovid documented in this encounter Plan of Treatment Name Type Priority Associated Diagnoses Order S chedule COVID-19 (PCR MOLECULAR LAB Routine Pre-operative mae arance Expected: 01/21/2020, TESTING) Expires: 2020 Health Maintenance Due Date Last Done Comments [...] filedocumented in this encounter Visit Diagnoses Diagnosis Pre-operative clearance - Primary Preoperative examination, unspecified documented in this encounter Additional Health Concerns Infection Onset Date Last Indicated Resolved Time COVID-19 Confirmed 12/31/2019 12/31/2019 COVID-19 Rule Out 01/21/2020 01/21/2020 documented as of this encounter Insurance Payer Benefit Plan / Subscriber ID Effective Dates Phone Addre ss Type Group [id number] 2015-Present Medicare Adv spring HMO documented as of this encounter
--- OUTSIDE RECORDS SUMMARY | 2020-03-31 08:48 | XMS REPORT | Summary of Care ---
:1945 Author Organization [facility] Address [address] [place] [address] Care Team Providers Name Role Phone José Brady Ramirez Primary Care Provider Encounter Details Date Type Department Care Team Description 01/21/2020 Orders Only [facility] Doctor Unassigned, No 301 [facility] Name [place] [phone] [place] [address] Allergies Active Allergy Reactions Severity Noted Date [...] Added automatically from request for walter holliday [id number] De Quervain's tenosynovitis, left 06/17/2019 Overview: Added automatically from request for walter holliday [id number] Shoulder pain, left 11/20/2015 documented as of [...] Signs Not on filedocumented in this encounter Plan of Treatment Health [...] 09/16/2020 09/17/2019 documented as of this encounter Procedures Procedure Name Priority Date/Time Associated Diagnosis Comme nts ASSIGNMENT OF BENEFITS Routine 01/21/2020 2:16 PM CDT documented in this encounter Results Not on filedocumented in this encounter Additional Health Concerns Infection Onset Date Last Indicated Resolved Time COVID-19 Confirmed 12/31/2019 12/31/2019 documented as of this encounter Insurance Payer Benefit Plan / Subscriber ID Effective Dates Phone Addre ss Type Group [employer] [id number] 2015-Present Medicare Adv spring HMO documented as of this encounter
--- OUTSIDE RECORDS SUMMARY | 2020-03-31 08:48 | XMS REPORT | Continuity of Care Document ---
:1945 Author Organization [facility] t Address [address] [place] [address] Care Team Providers Name Role Phone Pob1, Acute Care Clinic Attending Clinician Unavailable Love FAJARDO, M Attending Clinician Unavailable Only, Test Attending Clinician Unavailable Doctor Unassigned, Name Attending Clinician Unavailable Rj CROUCH, L Attending Clinician Payers Payer Name Policy Type Policy Number Effective Date Expiration Date S ource Problems This patient has no known problems. Allergies, Adverse Reactions, Alerts Allergy Allergy Status Severity Reaction(s) Onset Inactive Treating Comm ents Source Name Type Date Date Clinician No DA Active U [facility] [place] Informat 00:00: d ion 00 [facility] e Medications This patient has no known medications. Procedures This patient has no known procedures. Encounters Start End Encounter Admission Attending Care Care Encounter Source Date/Time Date/Time Type Type Clinicians Facility Department ID 2020-01-24 2020-01-24 Telephone Pob1, Acute [facility] [id number] 00:00:00 00:00:00 [facility] [id number] [facility] 4.2.7.2.686 Professio [phone] nal [address] 2020-01-23 2020-01-23 Telephone Jenifer Aleman [id number] 00:00:00 00:00:00 [facility] [address] [id number] 2020-01-21 2020-01-21 Laboratory Only, [facility] [id number] 14:17:29 14:32:29 Only Test [facility] 350.1.13.[address]2.686 [place] [id number] 353 2020-01-21 2020-01-21 Orders Doctor SEPIDEH [id number] 00:00:00 00:00:00 Only Unassigned, [place] 350.1.13.10 [place] [address].2.7.2.686 [id number] 009 2019-09-17 2020-01-06 Office Rj [facility] [id number] 08:52:15 12:51:23 Visit [facility] [id number] Surgical 2.7.2.686 Special [phone] es [address] [facility] Results Test Description Test Time Test Comments Results Result [facility] e Comments - CT C-SPINE W/O 2019-07-29 Name: CONT 21:12:00 CLIFF DE LA ROSA [facility] : 1945 Age/S: 74 / M [address] [address] [place] Unit #: [id number] Loc: [place] [address] Phys: Latasha Alfaro MD Acct: [id number] Dis Date: Status: REG ER PHONE #: [phone] Exam Date: 07/29/20192058 FAX #: Reason: fall EXAMS: CPT: [id number] CT C-SPINE W/O CONT 12644 EXAM: - CT C-SPINE W/O CONT Location code:C3 HISTORY: 74 years -old Male with fall TECHNIQUE: Axial CT images through the cervical spine were obtained without intravenous contrast. Sagittal and coronal reformatted images were created from the data set. One or more of the following dose reduction techniques were used: Automated exposure control, adjustment of the mA and/or kV according to patient size, and/or utilization of iterative reconstruction technique. COMPARISON: None FINDINGS: Bones: No evidence of acute fracture or subluxation. There is cervical straightening. Vertebral heights are maintained. No aggressive osseous lesions are identified. Multilevel degenerative changes of the cervical spine are noted with multilevel facet arthropathy as well as posterior disc osteophyte complexes at multiple cervical levels. Vascular calcifications are present. IMPRESSION: 1. Multilevel degenerative changes of the cervical spine with cervical straightening. 2. No acute fracture. No other acute osseous abnormality identified. at 2111 Reported and signed by: Cliff Ray M.D. PAGE 1 Signed Report (CONTINUED) Name: CLIFF DE LA ROSA [facility] : 1945 Age/S: 74 / M [address] [address] [place] Unit #: [id number] Loc: [place] [address] Phys: Latasha Alfaro MD Acct: [id number] Dis Date: Status: REG ER PHONE #: [phone] Exam Date: 07/29/20192058 FAX #: Reason: fall EXAMS: CPT: [id number] CT C-SPINE W/O CONT 39114 <Continued> CC: Latasha Alfaro MD; José Brady MD; Monika Donaldson MD Technologist:Arleen Barboza RT(R)(CT); ... CTDI: DLP: Trnscb Date/Time: 07/29/2019 (2111) [email or web address] Orig Print D/T: S: 07/29/2019 (2114) PAGE 2 Signed Report DRUGS OF ABUSE SCREEN UR 2019-07-29 20:22:00 Test Item Value Reference Range Interpretation Comme nts URN COCAINE (test code = COCAURN) NEGATIVE SCcutoff <300 NG/ML URN CANNABINOIDS (test code = CANNABURN) NEGATIVE SCcutoff <50 NG/M L URN AMPHETAMINE (test code = AMPHETURN) NEGATIVE SCcutoff <1000 NG/ ML URN BARBITURATE (test code = BARBITURN) NEGATIVE SCcutoff <200 NG/M L URN BENZODIAZEPINE (test code = BENZOURN) NEGATIVE SCcutoff <200 NG /ML URN OPIATES (test code = OPIATURN) NEGATIVE SCcutoff <2000 NG/ML URN PHENCYCLIDINE (PCP) (test code = PHENCURN) NEGATIVE SCcutoff <2 5 NG/ML URN METHADONE (test code = METHAURN) NEGATIVE SCcutoff <300 NG/ML UA RFLX MICR CULT IF [id number] 19:56:00 Test Item Value Reference Range Interpretation Comments UA COLOR (test code = COLU) YELLOW discript YEL/STRAW UA APPEARANCE (test code = CLEAR discript CLEAR APPU) UA GLUCOSE DIPSTICK (test NEGATIVE mg/dL NEG code = DGLUU) UA BILIRUBIN DIPSTICK (test NEGATIVE mg/dL NEG code = BILU) UA KETONE DIPSTICK (test NEGATIVE mg/dL NEG code = KETU) UA SPECIFIC GRAVITY (test 1.020 SG 1.005-1.030 code = SGU) UA BLOOD DIPSTICK (test NEGATIVE mg/DL NEG code = EUGENE) UA PH DIPSTICK (test code = <=5.0 pH UNITS 5.0-7.0 AKIN) UA PROTEIN DIPSTICK (test NEGATIVE mg/dL NEG code = PROU) UA UROBILINIOGEN DIPSTICK 0.2 mg/dL <2.0 (test code = URO) UA NITRITE DIPSTICK (test NEGATIVE SCREEN NEG code = PHILIP) UA LEUKOCYTE ESTERASE NEGATIVE Leuk/mcL NEGATIVE DIPSTICK (test code = LEUU) SOURCE OF URINE: CLEAN CATCHIndication for culture: Dysuria/FrequencyUA RFLX MICR CULT IF [id number] 19:48:00 Test Item Value Reference Range Interpretation Comments UA COLOR (test code = COLU) YELLOW discript YEL/STRAW UA APPEARANCE (test code = CLEAR discript CLEAR APPU) UA GLUCOSE DIPSTICK (test NEGATIVE mg/dL NEG code = DGLUU) UA BILIRUBIN DIPSTICK (test NEGATIVE mg/dL NEG code = BILU) UA KETONE DIPSTICK (test NEGATIVE mg/dL NEG code = KETU) UA SPECIFIC GRAVITY (test 1.020 SG 1.005-1.030 code = SGU) UA BLOOD DIPSTICK (test NEGATIVE mg/DL NEG code = EUGENE) UA PH DIPSTICK (test code = <=5.0 pH UNITS 5.0-7.0 AKIN) UA PROTEIN DIPSTICK (test NEGATIVE mg/dL NEG code = PROU) UA UROBILINIOGEN DIPSTICK 0.2 mg/dL <2.0 (test code = URO) UA NITRITE DIPSTICK (test NEGATIVE SCREEN NEG code = PHILIP) UA LEUKOCYTE ESTERASE NEGATIVE Leuk/mcL NEGATIVE DIPSTICK (test code = LEUU) UA CULTURE NEEDED? (test Criteria Culture CHK code = UACULT) SOURCE OF URINE: CLEAN CATCHIndication for culture: Dysuria/Frequency [id number] 18:22:00 Test Item Value Reference Range Interpretation Comments TROPONIN-I (test < 0.015 NG/ML 0.000-0.045 N Negative: </= 0.045 code = TROPI) Positive: >/= 0.046 Correlation wit h serial results, other cardiac markers, and cl inical findings is nec essary to determine the c linical significance of this result. Quantit ative results using d ifferent methodologies s hould not be compared to one another as nume rical results may flavia yby method. Completed by Nursing: [id number] 18:22:00 Test Item Value Reference Range Interpretation Comments ALCOHOL (test code = ALC) 219 MG/DL 0-10 HH Completed by Nursing: NOPROTHROMBIN [id number] 18:18:00 Test Item Value Reference Range Interpretation Comments PT PATIENT (test code = PTP) 10.7 SECONDS 9.3-12.9 N INTERNATIONAL NORMAL RATIO 0.95 INR Unit 0.8-1.2 N (test code = INR) THROMBOPLASTIN TIME [id number] 18:18:00 Test Item Value Reference Range Interpretation Comments THROMBOPLASTIN TIME PARTIAL 30.1 SECONDS 26-35 N (test code = PTT) BASIC METABOLIC [id number] 18:14:00 Test Item Value Reference Range Interpretation Comments SODIUM (test code = NA) 139 mmol/L 134-147 N POTASSIUM (test code = 3.5 mmol/L 3.4-5.0 N K) CHLORIDE (test code = 103 mmol/L 100-108 N CL) CARBON DIOXIDE (test 24 mmol/L 21-32 N code = CO2) ANION GAP (test code = 12.0 GAP calc 4.0-15.0 N GAP) GLUCOSE (test code = 152 MG/DL 70-110 H GLU) BLOOD UREA NITROGEN 17 MG/DL 7-18 N (test code = BUN) GLOMERULAR FILTRATION >=60 max estimate >60 RATE (test code = GFR) estGFR CREATININE (test code = 1.0 MG/DL 0.8-1.3 N CREAT) CALCIUM (test code = CA) 8.6 MG/DL 8.5-10.1 N CBC W/O [id number] 18:01:00 Test Item Value Reference Range Interpretation Comments WHITE BLOOD CELL (test code = 6.6 K/mm3 3.5-11.0 N WBC) RED BLOOD CELL (test code = RBC) 4.36 M/mm3 4.70-6.10 L HEMOGLOBIN (test code = HGB) 13.8 G/DL 12.3-15.9 N HEMATOCRIT (test code = HCT) 39.5 % 35.8-46.7 N MEAN CELL VOLUME (test code = 90.6 Fl 86.3-98.9 N MCV) MEAN CELL HGB (test code = MCH) 31.7 pg 28.9-34.4 N MEAN CELL HGB CONCETRATION (test 34.9 G/DL 32.1-34.5 H code = MCHC) RED CELL DISTRIBUTION WIDTH (test 12.9 SD 11.5-14.5 N code = RDW) PLATELET COUNT (test code = PLT) 211.0 K/mm3 150-450 N MEAN PLATELET VOLUME (test code = 8.90 fL 7.0-9.6 N MPV) - CT HEAD/BRAIN W/O [id number] 17:55:00 Name: CLIFF DE LA ROSA [facility] : 1945 Age/S: 74 / M [address] [address] [place] Unit #: [id number] Loc: [place] [address] Phys: Monika Donaldson MD Acct: [id number] Dis Date: Status: REG ER PHONE #: [phone] Exam Date: 07/29/2019 1810 FAX #: Reason: Code Str sumeet EXAMS: CPT: [id number] CT HEAD/BRAIN W/O CONT [id number] EXAM: CT BRAIN WITHOUT CONTRAST INDICATION: Code Stroke COMPARISON: None available TECHNIQUE: Routine axial CT images of the brain were obtained without venous contrast. IV contrast: None DLP: 902.17 mGy-cm FINDINGS: No intra-axial or extra-axial fluid collections were identified. No acute intracranial hemorrhage. There are areas of low- attenuation within the supratentorial white matter consistent with chronic microvascular ischemic changes. There is mild prominence of the sulci consistent with mild diffuse cerebral volume loss. No midline shift or mass effect. The basal cisterns are patent. The posterior fossa and 4th ventricle are normal. No calvarial lesions are identified. The paranasal sinuses and mastoid air cells are clear. The orbits and globes are unremarkable. IMPRESSION: No acute intracranial abnormality. No intracranial hemorrhage. Chronic microvascular ischemic changes and diffuse cerebral volume loss. The above findings were discussed with Dr. Donaldson at 5:54 PM via telephone. LOCATION: This CT exam was performed according to our departmental dose optimization program, which includes automated exposure control, adjustment of the mA and or kV according to patient size and/or use of iterative reconstruction techn ique. at 9920 Reported and signed by: Whit Murphy M.D. PAGE 1 Signed Report (CONTINUED) Name: CLIFF DE LA ROSA [facility] : 1945 Age/S: 74 / M [address] [place] [address] Unit #: [id number] Loc: [place] [address] Phys: Monika Donaldson MD Acct: [id number] Dis Date: Status: REG ER PHONE #: [phone] Exam Date: 07/29/2019 1810 FAX #: Reason: Code Stroke EXAMS: CPT: [id number] CT HEAD/BRAIN W/O CONT 11659 <Continued> CC: Monika Donaldson MD Technologist:Bill Mancuso, RT(R)(CT)(MRI) CTDI: DLP: Trnscb Date/Time: 07/29/2019 (175) Cris Estrada D/T: S: 07/29/2019 (5756) PAGE 2 Signed Report
--- OUTSIDE RECORDS SUMMARY | 2020-03-31 08:49 | XMS REPORT | Summary of Care ---
:1945 Author Organization [facility] Address [address] [place] [address] Care Team Providers Name Role Phone José Brady Primary Care Provider Reason for Visit Reason Comments Results Encounter Details Date Type Department Care Team Description 01/24/2020 Telephone [facility] Family Medicine Pob1, Acute C are Clinic Results - [address] [place] [address] Allergies Active Allergy Reactions Severity Noted Date Comments Niacin Other - See comments 07/08/2015 flushed documented as of this encounter (statuses as of 01/24/2020) Medications Medication Sig Dispensed Refills Start Date [...] as of this encounter (statuses as of 01/24/2020) Active Problems Problem Noted Date Left carpal tunnel syndrome 12/24/2019 Overview: Added automatically from request for walter holliday [id number] De Quervain's tenosynovitis, left 06/17/2019 Overview: Added automatically from request for walter holliday [id number] Shoulder pain, left 11/20/2015 documented as of this encounter (statuses as of 01/24/2020) Immunizations Name Administration Dates Next Due Influenza [...] this encounter Miscellaneous Notes Telephone Encounter - Thais Daniel RN - 01/24/2020 12:33 PM CDT Patient informed of negative covid results. COVID-19 (PCR MOLECULAR TESTING) Order: [id number] Status: Final result Visible to patient: No (not released) Dx: Pre- operative clearance Specimen Information: NASOPHARYNGEAL SWAB Component Ref Range & Units 3d ago SARS-CoV-2 PCR Not Detected Not Detected Telephone Encounter - Blanka Sutton - 01/24/2020 12:24 PM CDTPatient is calling and requesting a call back in regards to his results. elephone Encounter - Katie Muller - 01/24/2020 8:43 AM CDTPt requesting covid results. documented in this encounter Plan of Treatment [...] Effective Dates Phone Addre ss Type Group [employer] [id number] 2015-Present Medicare Adv spring HMO documented as of this encounter
[2020-03-31] MEDS ORDERED: LIDOCAINE 2% MPF 5 ML VIAL ONE (09:21)
[2020-03-31] MEDS ORDERED: NS 0.9% VIAL 40 ML ONE (09:21)
[2020-03-31] MEDS ORDERED: FENTANYL CITR 100 MCG/2 ML ONE (09:41)
[2020-03-31] MEDS ORDERED: propofoL 200 MG/20 ML VIAL IV ONE (09:41)
[2020-03-31] MEDS ORDERED: MIDAZOLAM HCL 2 MG/2 ML INJ ONE (09:42)
[2020-03-31] MEDS ORDERED: ONDANSETRON 4 MG/2 ML VIAL ONE (09:49)
[2020-03-31] MEDS ORDERED: ROCURONIUM 50 MG/5 ML VIAL IV ONE (09:57)
[2020-03-31] MEDS: BUPIVACAINE 0.25% PF 10 ML VIAL ONE ×2 (10:55→11:07)
--- NOTE | 2020-03-31 11:24 | P.BOP ---
Preoperative diagnosis: left carpal tunnel syndrome Postoperative diagnosis: same Primary procedure: left open carpal tunnel release Secondary procedure: none Shot Polisher: NONE,NONE Estimated blood loss: 5 cc Specimen: none Findings: see dictation Anesthesia: Nikkie Block Complications: None Implants: none Fluids & blood products: per anesthesia record; TT: 33 mins @ 300 mmHg Transferred to: Recovery Room Condition: Good
[2020-03-31] MEDS ORDERED: KETOROLAC 30 MG/ML INJ ONE (11:31)
[2020-03-31] MEDS ORDERED: CODEINE 30MG/APAP 300MG TAB ONE (11:52)
[2020-03-31 11:53] VITALS: TEMP 97.6
[2020-03-31 11:54] VITALS: BP 130/73; O2SAT 98
--- NOTE | 2020-04-01 01:31 | OP ---
Date of Procedure: 03/31/2020 Surgeon: Mingo Mendoza MD Preoperative Diagnosis: Left carpal tunnel syndrome. Postoperative Diagnosis: Left carpal tunnel syndrome. Procedure Performed: Left open carpal tunnel release. Anesthesia: Shaw block. Complications: None. Implants: None. Tourniquet Time: 33 minutes at 300 mmHg. Fluids: Per anesthesia record. Estimated Blood Loss: 5 cc. Indication For Procedure: Qasim is a 75-year-old male, who presented to my clinic with signs, sympt oms, EMG findings consistent with moderate to severe left carpal tunnel syndrome. The patient failed conservative treatment measures and had pain and numbness, tingling interfering with his activities of daily living. I discussed with the patient at length risks and benefits associated with operative and nonoperative treatment. He expressed understanding and elected to proceed with operative treatm ent. Description Of Procedure: After informed consent was obtained, the patient was identified in preoper ative holding area. The left upper extremity was marked. The patient was then taken to the operatin g room, transferred to the operating table in supine fashion, and placed under Shaw block anesthesia. The left upper extremity was then prepped and draped in usual sterile fashion. A time-out was init iated. The correct patient and procedure were confirmed and identified. The patient did receive his preoperative prophylactic antibiotics. Approximately 3 cm longitudinal incision was made just ulnar to the thenar palm crease. Dissection was then taken down to the palmar fascia. A Zillah elevator w as placed just deep to the palmar fascia and a 15 blade was then used to release the palmar fascia wi th a Zillah elevator protecting the median nerve at all times. The transverse carpal ligament was the n released using a 15 blade and any remaining fascial bands were released using a smooth tip Metzenba um with the tips pointed superficially to stay away from the median nerve at all times. The wound wa s then irrigated thoroughly with normal saline. Skin was approximated using a 5-0 Prolene and the pa tient was awakened and transferred to PACU in stable condition. Postoperative Plan: The patient will be nonweightbearing to his left upper extremity. He will work on range of motion exercises at home. He will follow up in clinic in 1 week for suture removal. CV/MODL Voice ID: [id number] Report ID: [id number]
== END 2020-03-31 12:25 | disposition home or self-care (01) ==
LOC: OR 08:20
PROVIDERS: ATTEND Orthopaedic Surgery Sports Medicine
PROC: 01N50ZZ Release Median Nerve, Open Approach (ICD-10-PCS; principal; 2020-03-31 10:00)
DX: G56.02 Carpal tunnel syndrome, left upper limb (principal); E11.9 Type 2 diabetes mellitus without complications; I10 Essential (primary) hypertension; Z20.828 Contact with and (suspected) exposure to other viral communicable diseases; Z88.8 Allergy status to other drugs, medicaments and biological substances
CPT/HCPCS: 64721; 85025; 80048; 36415; 85610; 82947; 85730; U0002; J2704; J2250; J3010; J0690; J7030; J2405